=== PATIENT | female | born 2000 | race Two or more races ===

== ENCOUNTER 2024-02-22 17:29 | Emergency (ER) | payer MEDICAID, SELFPAY ==
[2024-02-22 17:53] VITALS: BP 116/71; PULSE 96; RESP 17; TEMP 37.6; O2SAT 97; BMI 30.5
--- NOTE | 2024-02-22 17:59 | XR_ITS ---
Examination: Complete OB ultrasound, less than 14 weeks, transabdominal Date and time of exam: February 22, 2024 1901 hrs. Indications: Vaginal bleeding beginning 4 days ago Technique: Obstetrical ultrasound images less than 14 weeks performed via transabdominal imaging Findings: Uterus 12.1 x 6.5 x 9.0 cm Intrauterine gestation pole 1.5 cm corresponds to 8 weeks 0 day gestational age No cardiac motion Right ovary 2.9 x 2.3 cm arterial flow small follicles Left ovary 2.3 x 2.4 cm arterial flow small follicles Impression: Intrauterine gestation corresponding to 8 weeks 0 day gestational age However, no cardiac activity consistent with embryonic demise
--- NOTE | 2024-02-22 17:59 | PD.EDRME ---
Rapid Medical Screening Exam RME Arrival date/time: 02/22/24 17:29 23-year-old female presents to the emergency department complaints of vaginal spotting patient was seen by DIRECTOR OF SALES AND MARKETING for the patient she reports that her DIRECTOR OF SALES AND MARKETING could not find heart tones Chief Complaint: Vaginal Bleeding Vital signs: Vital Signs Temperature 99.6 F 02/22/24 17:53 Pulse Rate 96 02/22/24 17:53 Respiratory Rate 17 02/22/24 17:53 Blood Pressure 116/71 02/22/24 17:53 Pulse Oximetry (%) 97 02/22/24 17:53 Oxygen Delivery Method Room Air 02/22/24 17:53
[2024-02-22 18:15] LABS: Basophils % (Auto) 0 % (0-2.5); Eosinophils # (Auto) 0.1 Thou/mm3 (0.0-0.5); Eosinophils % (Auto) 1 % (0-10); Hematocrit 41.3 % (36.0-46.0); Hemoglobin 14.2 g/dL (12.0-16.0); Immature Granulocytes % (Auto) 0 % (0-0); Immature Granulocytes Auto 0.02 Thou/mm3 (0.00-0.00); Lymphocytes % (Auto) 22 % (10-50); Mean Corpuscular HGB Conc 34.4 g/dl (31.0-37.0); Mean Corpuscular Hemoglobin 30.8 pg (25.0-35.0); Mean Corpuscular Volume 90 fL (80-100); Monocytes # (Auto) 0.6 Thou/mm3 (0.0-0.8); Monocytes % (Auto) 7 % (0-12); Neutrophils # (Auto) 6.2 Thou/mm3 (1.8-7.7); Neutrophils % (Auto) 69 % (37-80); Nucleated Red Blood Cell % 0 /100 WBC (0); Platelet Count 243 Thou/mm3 (140-440); RDW Standard Deviation 42.4 fL (36.4-46.3); Red Blood Count 4.61 Miln/mm3 (4.00-5.20); White Blood Count 8.9 Thou/mm3 (3.6-11.0)
[2024-02-22 18:35] LABS: Alanine Aminotransferase 16 U/L (10-49); Albumin, Serum 4.4 gm/dL (3.5-5.0); Albumin/Globulin Ratio 1.7 (1.2-2.2); Alkaline Phosphatase 67 U/L (46-116); Anion Gap 7 (7-16); Aspartate Amino Transferase 12 U/L (0-34); BUN/Creatinine Ratio 13 Ratio (12-20); Bilirubin,Total 0.2 mg/dL (0.3-1.2); Blood Urea Nitrogen 9 mg/dL (9-23); Calcium 9.5 mg/dL (8.3-10.6); Calcium (Corrected) 9.5 mg/dL (8.5-10.1); Carbon Dioxide 26.4 mMol/L (20.0-31.0); Chloride 104 mMol/L (98-107); Creatinine (Component) 0.7 mg/dL (0.6-1.3); Estimated Creatinine Clearance 127.4 mL/min (>60); Globulin 2.6 gm/dL (2.3-3.5); Glucose 118 mg/dL (74-106); Osmolality,Calculated 273 (275-295); Potassium 3.7 mMol/L (3.4-5.1); Sodium 137 mMol/L (136-145); eGFR > 60 See Note
[2024-02-22 19:09] LABS: Beta HCG,Quantitative 10611 mIU/mL (<5.0)
[2024-02-22 19:12] LABS: Collection Type, Urine Clean Catch
[2024-02-22 19:21] LABS: Bilirubin,Urine Negative (Negative); Blood,Urine Negative (Negative); Clarity,Urine Clear (Clear/Hazy); Color,Urine Lt-Yellow (Lt Yel-Yel); Glucose, Urine Negative (Negative); Ketones,Urine Negative (Negative); Leukocyte Esterase,Urine Negative (Negative); Nitrite,Urine Negative (Negative); Protein,Urine Negative (Neg - Trace); RBC,Urine < 1 /hpf (0-3); Specific Gravity,Urine 1.009 (1.001-1.035); Squamous Epithelial Cell,Urine < 1 /hpf (0-5); Urobilinogen,Urine Negative mg/dL (0.0-1.0); WBC,Urine 1 /hpf (0-5)
--- NOTE | 2024-02-22 22:31 | PD.EDVAGBL ---
ED OB Contraction Preg RMI/HPI General Chief complaint: Vaginal Bleeding Stated complaint: 10 weeks OB, no heart tones Time Seen by Provider: 02/22/24 22:29 Arrival date/time: 02/22/24 17:29 This is a 23-year-old female that comes to the emergency room after seeing her primary doctor with no heart tones in the office. Patient states that she was seen approximately 2 weeks ago and was measuring about 8 weeks at that time. According to patient she was still measuring 8 weeks . And there was no heartbeat. Patient was sent to the emergency room for further evaluation. Patient's last menstrual period was October 30, 2023. Patient is a 2 para 1. Patient denies any past medical history. RME / HPI RME / HPI Narrative: 02/22/24 17:29 23-year-old female presents to the emergency department complaints of vaginal spotting patient was seen by RETAIL RESET MERCHANDISER for the patient she reports that her RETAIL RESET MERCHANDISER could not find heart tones Related Data Allergies Allergy/AdvReac Type Severity Reaction Status Date / Time No Known Allergies Allergy Verified 02/22/24 17:34 Review of Systems Review of Systems Systems Reviewed: All systems reviewed, normal except as documented Past Medical History Past Medical History Comments PMH COMMENT: none ED Exam General General appearance: Present alert and in no apparent distress Head Head exam: Present atraumatic Eye Eye exam: Present normal appearance, PERRL and EOMI ENT ENT exam: Present normal exam, normal oropharynx and mucous membranes moist Neck Neck exam: Present normal inspection, full ROM and trachea midline Chest Chest inspection: Present normal inspection and symmetric chest wall rise Respiratory Respiratory exam: Present normal lung sounds bilaterally Cardiovascular Cardiovascular exam: Present regular rate, normal rhythm and normal heart sounds Abdominal Exam Abdominal exam: Present soft and other (no pain to light palpation ) Extremities Exam Extremities exam: Present normal inspection and full ROM Back Exam Back exam: Present normal inspection and full ROM Neurological Exam Neurological exam: Present alert, oriented X3 and CN II-XII intact Psychiatric Psychiatric exam: Present normal affect and normal mood Skin Skin exam: Present warm and dry Course Quality Measures none Orders Category Date Time Status US OB <= 14 weeks fetus Stat Exams 02/22/24 17:59 Completed ABO/RH Type Stat Lab 02/22/24 18:03 Completed Beta HCG,Quantitative Stat Lab 02/22/24 18:03 Completed CBC Stat Lab 02/22/24 18:03 Completed Comprehensive Metabolic Panel Stat Lab 02/22/24 18:03 Completed UA [Urinalysis] Stat Lab 02/22/24 18:50 Completed Urine Culture Stat Lab 02/22/24 18:50 Completed Vital Signs Vital signs: Vital Signs Temperature 99.6 F 02/22/24 17:53 Pulse Rate 96 02/22/24 17:53 Respiratory Rate 17 02/22/24 17:53 Blood Pressure 116/71 02/22/24 17:53 Pulse Oximetry (%) 97 02/22/24 17:53 Oxygen Delivery Method Room Air 02/22/24 17:53 Vaginal Bleeding MDM Narrative MDM Narrative: I spoke to patient at length about no cardiac activity seen on ultrasound. I talked to the patient and told her it was likely that she is having a miscarriage. Patient only having spotting at this time. I explained symptoms to look for and to come back to the emergency room such as heavy vaginal bleeding, fever, and abdominal pain. Patient verbalizes that she will follow-up with primary provider tomorrow. US: Findings: Uterus 12.1 x 6.5 x 9.0 cm Intrauterine gestation pole 1.5 cm corresponds to 8 weeks 0 day gestational age No cardiac motion Right ovary 2.9 x 2.3 cm arterial flow small follicles Left ovary 2.3 x 2.4 cm arterial flow small follicles Impression: Intrauterine gestation corresponding to 8 weeks 0 day gestational age However, no cardiac activity consistent with embryonic demise Patient data External records reviewed:: [facility] previous records Clinical information provided by:: patient Social determinants that could affect healthcare access:: none Patient has the following chronic illnesses:: none How is presenting disease/condition affected by chronic disease/condition?: no chronic disease Evaluation data The following diagnostics were reviewed and interpreted by me:: lab results and radiology exam(s) Lab and/or radiology exams considered but not ordered:: none Interpretation Summary: see note Medications / Prescriptions Medications or Prescriptions considered but not ordered:: none Medication administrations:: none Consultations Consultation(s) initiated? (list below): No Diagnosis Vaginal Bleeding Differential Diagnosis: threatened , incomplete , ectopic without intrauterine and vaginal bleeding Most likely diagnosis given after review of the tests above:: miscarriage Admission Indicated Admission indicated?: not indicated Admission Request Was there a request for admission?: No Disposition Plan Disposition Plan: Discharge Discharge Attestation Discharge Attestation: The patient and all family members were given an opportunity to ask questions and understood the discharge instructions. Discharge instructions specifically effects, indications for sooner follow up or return to the emergency department, and the expected course of current diagnosis. Patient condition: Stable Discharge Plan Plan Patient Disposition: HOME (Self Care) Patient condition on transfer: Stable Prescriptions/Referrals Referrals: Archie Newsome MD [Primary Care Provider] - In 1 week Problem List Clinical Impression: Vaginal bleeding, Threatened Patient/Caregiver Discharge Instructions Discharge Activity: activity as tolerated Education Materials: Understanding Miscarriage ... Additional Instructions: Today ultrasound shows no cardiac activity consistent with demise. HCg quant [id number]. Please follow-up with primary provider in 1 to 2 days. Come back to the emergency room if symptoms change or worsen. Print Language: Citizen Of [place] Stand Alone Forms: Rhonda Award Info., Patient Portal Info Letter PA/JANY Supervising Physician PA/[employer] Supervising Physician: [email or web address]
== END 2024-02-22 22:54 | disposition home or self-care (01) ==
PROVIDERS: Nurse Practitioner Primary Care; Emergency Provider Emergency Medicine; PCP Obstetrics & Gynecology
DX: O20.0 Threatened abortion (principal); Z3A.08 8 weeks gestation of pregnancy
CPT/HCPCS: 36415; 76801; 80053; 81001; 84702; 85025; 86900; 86901; 87086; 99284